=== PATIENT | male | born 1965 | race Caucasian/White ===

== ENCOUNTER 2017-10-24 12:17 | Emergency (ER) | payer SELFPAY ==
[~2017-10-24] VITALS: Ht 180.3 cm; Wt 85.3 kg
[2017-10-24 12:19] VITALS: BP 150/93; PULSE 110; RESP 18; TEMP 98; O2SAT 95
[2017-10-24] MEDS ORDERED: IBUPROFEN 800 MG TAB PO ONE (13:00)
[2017-10-24] MEDS ORDERED: CLINDAMYCIN 150 MG CAP PO ONE (13:00)
[2017-10-24] MEDS ORDERED: IBUP1TAB7 PO (13:01)
[2017-10-24] MEDS ORDERED: CLIN150C14 PO (13:01)
[2017-10-24] MEDS ORDERED: PERI0.126 SWISH-SPIT (13:01)
--- NOTE | 2017-10-24 13:01 | PD ---
HPI Chief Complaint: Oral / Dental Pain or Problem Time Seen by Provider: 12:56 Travel History International Travel<30 days: No Contact w/Intl Traveler<30days: No Traveled to known affect area: No History of Present Illness HPI 51-year-old male presents to the emergency department for evaluation of gingival swelling to the left lower gumline that started 3 days ago. Patient states he has had a dental abscess before and this is similar. No fevers or chills. Current pain is 8/10, throbbing, no radiation. No exacerbating or alleviating factors. Mild severity. PFSH Past Medical History Medical History: Denies Significant Hx Diminished Hearing: No Immunizations Current: Yes Tetanus Vaccination: < 5 Years Influenza Vaccination: No Social History Alcohol Use: Yes (OCC) Tobacco Use: Yes (1/2) Substance Use: No Allergies-Medications (Allergen,Severity, Reaction): Coded Allergies: No Known Allergies (Verified Allergy, Unknown, 10/24/17) Reported Meds & Prescriptions Reported Meds & Active Scripts Active Clindamycin (Clindamycin HCl) 150 Mg Cap 300 Mg PO Q6H 10 Days Peridex Liq (Chlorhexidine Gluconate (Mouth) Liq) 0.12% Soln 15 Ml SWISH-SPIT BID Ibuprofen 800 Mg Tab 800 Mg PO TID PRN Review of Systems Except as stated in HPI: all other systems reviewed are Neg Physical Exam Narrative GENERAL: Well-nourished, well-developed male patient, afebrile. SKIN: Focused skin assessment warm/dry. HEAD: Normocephalic. Atraumatic. No facial swelling. ENT: Mucosa pink and moist. No erythema or exudates. No uvular edema. No uvular , palatal, or tonsillar deviation. Airway patent. Nasal turbinates appear normal without nasal blood, purulent drainage or septal hematoma. Bilateral tympanic membranes clear without erythema or perforation. Patient has gingival swelling below tooth #20, 21, 22. Patient has overall poor dentition. EYES: No scleral icterus. No injection or drainage. NECK: Supple, trachea midline. No JVD or lymphadenopathy. CARDIOVASCULAR: Regular rate and rhythm without murmurs, gallops, or rubs. RESPIRATORY: Breath sounds equal bilaterally. No accessory muscle use. Lung sounds are clear to auscultation. MUSCULOSKELETAL: No cyanosis, or edema. BACK: No obvious deformity. Data Data Last Documented VS Vital Signs Date Time Temp Pulse Resp B/P (MAP) Pulse Ox O2 Delivery O2 Flow Rate FiO2 10/24/17 12:19 98.0 110 18 150/93 (112) 95 Orders Orders Ibuprofen (Motrin) (10/24/17 13:00) Clindamycin (Cleocin) (10/24/17 13:00) Ed Discharge Order (10/24/17 13:02) MDM Medical Decision Making Medical Screen Exam Complete: Yes Emergency Medical Condition: Yes Medical Record Reviewed: Yes Differential Diagnosis Dental abscess versus dental caries versus gingivitis Narrative Course 51-year-old male presents to the emergency department for evaluation of dental pain and swelling. Physical exam is consistent with a dental abscess. Patient will be discharged a prescription for clindamycin, Peridex oral solution, ibuprofen for pain. He is to follow-up with a dentist. He is return here for any acute worsening of symptoms. The patient was discharged in stable condition with instructions, including return instructions and follow up instructions. Diagnosis Primary Impression: Dental abscess Referrals: Dentist call for appointment Patient Instructions: Dental Abscess (ED), General Instructions Additional Instructions: Take antibiotic as directed until gone. Take ibuprofen as directed as needed with food for pain. Use Peridex oral solution as directed. Follow-up with a dentist. Return to the emergency department for any acute worsening of symptoms. Med/Other Pt SpecificInfo: Prescription(s) given Scripts Clindamycin (Clindamycin) 150 Mg Cap 300 MG PO Q6H for Infection for 10 Days, #80 CAP 0 Refills Prov: Solange Bryson 10/24/17 Chlorhexidine Gluconate (Mouth) Liq (Peridex Liq) 0.12% Soln 15 ML SWISH-SPIT BID, #473 ML 0 Refills Prov: oSlange Bryson 10/24/17 Ibuprofen (Ibuprofen) 800 Mg Tab 800 MG PO TID Y for PAIN SCALE 1 TO 10, #21 TAB 0 Refills Prov: Solange Bryson 10/24/17 Disposition: 01 DISCHARGE HOME Condition: Stable Solange Bryson Oct 24, 2017 13:01
== END 2017-10-24 13:11 | disposition home or self-care (01) ==
LOC: PHEFT 12:17
DX: K04.7 Periapical abscess without sinus (principal); Z72.0 Tobacco use
CPT/HCPCS: 99283